=== PATIENT | male | born 1985 | race Caucasian/White ===

== ENCOUNTER 2016-09-04 10:35 | Emergency (ER) | payer OTHER ==
--- NOTE | ~2016-09-04 | CT101 ---
[facility] A Service of [facility] & [facility] RADIOLOGY TEXT RESULTS PATIENT: PEDRO LUIS DONATO LOCATION: SED : 87 UNIT #: [id number] AGE: [address]: Daniel Cartagena MD SEX: M ORDER DR: [id number] [address] [address] [id number] E MR#: [id number] Acc #: [id number] NAME: PEDRO LUSI DONATO : 1985 SEX: M STUDY DATE/TIME: 09/04/2016 9:52 UNIT: SED ROOM: STUDY DESCRIPTION: CT Maxillofacial Area Wo Cont Attending Physician: Daniel Cartagena M.D. Ordering Physician: Daniel Cartagena M.D. Primary Care Physician: Ken Donato M.D. MEDICAL IMAGING REPORT This report is preliminary unless electronic signature is present. EXAM CT face 09/04/2016 INDICATION Hit with lowering ramp on truck today. Right ear pain with puncture wound anterior to the right ear. Pain is 9/10. TECHNIQUE/COMPARISON Axial images were obtained through the face without contrast. Multiplanar reformats were obtained. Comparison made with facial CT from 08/07/2015. This CT exam was performed with one or more of the following radiation dose reduction techniques: automatic exposure control, adjustment of mA and/or kV according to patient size, and iterative reconstruction. FINDINGS There are no acute facial bone fractures. Temporomandibular joints demonstrate normal alignment. The paranasal sinuses are clear. The middle ear cavities and mastoid air cells on both sides are clear. Both external auditory canals are clear. There is some nasal septal deviation to the right. There is a single tiny bubble of air in the subcutaneous tissues anterior to the right ear. Correlate for puncture injury in this location. No radiopaque foreign body. IMPRESSION 1. No acute facial bone fractures. More specifically, the mastoid air cells, middle ear cavities, and external auditory canals are clear. There is nothing to suggest temporal bone fracture. 2. Single bubble of air in the subcutaneous tissues anterior to the right ear may indicate a puncture wound. Correlate clinically. No radiopaque foreign bodies in this location. [facility] A Service of [facility] & [facility] RADIOLOGY TEXT RESULTS PATIENT: PEDRO LUIS DONATO LOCATION: SED : 87 UNIT #: [id number] AGE: [address]: Daniel Cartagena MD SEX: M ORDER DR: Dictated by... Vik Monson Jr., M.D. THIS IS AN ELECTRONICALLY VERIFIED REPORT Vik Monson Jr., M.D. at 09/04/2016 3:54 PM ALICIA/aimee TD: 09/04/2016 12:34 JOB #: [id number] MEDICAL IMAGING REPORT Page 1 of 1
[~2016-09-04 10:35] MED LIST: AUGMENTIN875 MG PO; CILOXAN5 ML OU; LEXAPRO5 MG PO; TYLENOL #3 PO; VYVANSE50 MG
== END 2016-09-04 11:24 | disposition home or self-care (01) ==
LOC: SED 10:35
DX: S09.90XA Unspecified injury of head, initial encounter (principal); S01.81XA Laceration without foreign body of other part of head, initial encounter; F90.9 Attention-deficit hyperactivity disorder, unspecified type; Z98.890 Other specified postprocedural states; W22.8XXA Striking against or struck by other objects, initial encounter; Y93.89 Activity, other specified; Y92.69 Other specified industrial and construction area as the place of occurrence of the external cause; Y99.0 Civilian activity done for income or pay
CPT/HCPCS: 70486; 99284